=== PATIENT | female | born 1990 | race American Indian/Alaskan Native ===

== ENCOUNTER 2018-08-17 09:01 | Emergency (ER) | payer MEDICAID ==
--- NOTE | 2018-08-17 10:19 | Emergency Department Report ---
Vomiting/Diarrhea - HPI Chief Complaint: Nausea/Vomiting/Diarrhea Stated Complaint: WEAKNESS Duration: Today Severity: moderate Nausea/Vomiting Severity: Mild Diarrhea Severity: None Pain Severity: None Symptoms: Yes Able to Tolerate Fluids, No Watery Diarrhea, No Bloody diarrhea, No Fever, No Recent Unusual Foods, No Recent Untreated Water, No Recent use of Antibiotics, No Family w/ Similar Symptoms, No Contacts w/ Similar Symptoms, No Rash, No Hematuria, No Recent URI Symptoms Other History: This is a 27-year-old -[place] female presents with nausea and dizziness while at work this morning. Patient states she had been feeling weak for 1 week. She made an appointment with senior trainer scheduled for August 22 because she thought symptoms were related to abnormal menses. Last menstrual period was 06/12/2018, A2 abortions. Denies vomiting, diarrhea, abdominal pain, fever, myalgia, or cough. ED Review of Systems ROS: Stated complaint: WEAKNESS Other details as noted in HPI Constitutional: denies: chills, fever Respiratory: denies: cough, shortness of breath, wheezing Cardiovascular: denies: chest pain, palpitations Gastrointestinal: nausea. denies: abdominal pain, vomiting, diarrhea Skin: denies: rash, lesions Neurological: vertigo. denies: headache, weakness, paresthesias Psychiatric: denies: anxiety, depression ED Past Medical Hx - Past Medical History Previous Medical History?: No - Surgical History Additional Surgical History: C/S, tonsillectomy - Social History Smoking Status: Current Every Day Smoker Substance Use Type: None - Medications Home Medications: Home Medications Medication Instructions Recorded Confirmed Last Taken Type 21/Iron Fu/Folic Acid 1 each PO DAILY #30 tablet 08/17/18 Unknown Rx [ Complete Caplet] Vomiting Diarrhea Exam - Exam General: Vital signs noted. No distress. Alert and acting appropriately. HEENT: Yes Moist Mucous Membranes, No Pharyngeal Erythema, No Pharyngeal Exudates, No Rhinorrhea, No Conjuctival Injection, No Frontal Tenderness, No Maxillary Tenderness Neck: No Adenopathy, No Rigidity Lungs: Yes Clear Lung Sounds, Yes Good Air Exchange, No Wheezes, No Stridor, No Cough, No Nasal Flaring, No Retractions, No Use of Accessory Muscles Heart exam: Regular: Yes, Murmur: No, Tachycardia: No Abdomen: Tenderness: No, Peritoneal Signs: No, Distention: No, Hyperactive Bowel sounds: No Skin exam: Rash: No, Edema: No, Normal turgor: Yes Neurologic: Alert and oriented, no deficits. Musculoskeletal: Unremarkable. ED Course Vital Signs 08/17/18 09:06 Temperature 98.1 F Pulse Rate 89 Respiratory 16 Rate Blood Pressure 109/62 O2 Sat by Pulse 100 Oximetry ED Medical Decision Making - Lab Data Result diagrams: 08/17/18 10:27 08/17/18 10:27 Lab Results 08/17/18 08/17/18 08/17/18 Range/Units 10:27 10:27 10:27 WBC 10.2 (4.5-11.0) K/mm3 RBC 4.39 (3.65-5.03) M/mm3 Hgb 13.2 (10.1-14.3) gm/dl Hct 38.4 (30.3-42.9) % MCV 87 (79-97) fl M 30 (28-32) pg MCHC 35 H (30-34) % RDW 13.3 (13.2-15.2) % Plt Count 305 (140-440) K/mm3 Lymph % (Auto) 17.1 (13.4-35.0) % Hand % (Auto) 5.4 (0.0-7.3) % Eos % (Auto) 0.6 (0.0-4.3) % Baso % (Auto) 0.8 (0.0-1.8) % Lymph # 1.7 (1.2-5.4) K/mm3 Hand # 0.5 (0.0-0.8) K/mm3 Eos # 0.1 (0.0-0.4) K/mm3 Baso # 0.1 (0.0-0.1) K/mm3 Seg Neutrophils % 76.1 H (40.0-70.0) % Seg Neutrophils # 7.7 (1.8-7.7) K/mm3 Sodium 136 L (137-145) mmol/L Potassium 3.7 (3.6-5.0) mmol/L Chloride 99.9 (98-107) mmol/L Carbon Dioxide 25 (22-30) mmol/L Anion Gap 15 mmol/L BUN 7 (7-17) mg/dL Creatinine 0.6 L (0.7-1.2) mg/dL Estimated GFR > 60 ml/min BUN/Creatinine Ratio 12 % Glucose 93 (65-100) mg/dL Calcium 9.1 (8.4-10.2) mg/dL HCG, Qual Positive (Negative) - Radiology Data Radiology results: report reviewed ULTRASOUND OB LESS THAN 14 WEEKS FETUS ULTRASOUND OB LESS THAN 14 WEEKS FETUS ADD GESTATION History: Nausea and vomiting during . Technique: Transabdominal ultrasound with color and M mode Doppler interrogation. Comparison: None at this facility. Findings: A twin gestation is present. [place] rump length of baby A measures 49.7 mm which correlates with an 11 week 5 day . Heart rate measures 167 beats per minute. [place]-rump length of baby B measures 49.2 mm which correlates with an 11 week 5 day . heart rate measures 152 beats per minute. The placenta appears to be forming anteriorly. Dizygotic is suspected. Amniotic fluid volume appears within normal limits. No subchorionic hemorrhage is identified. The ovaries are normal size, contour and echotexture. A 1.5 cm corpus luteum cyst is suspected in the left ovary. No pelvic fluid collection. Impression: Viable twin as described. No acute abnormality is detected. - Medical Decision Making Patient was examined by me. Vitals are normal and patient is in no acute distress. Obtained a BMP, CBC, & hCG. Positive serum hCG. Quant is [id number]. OB ultrasound obtained and dictated by radiologist. Viable twin as described. No acute abnormality is detected. Patient informed of results. Start complete. Referral to CREDIT DEPARTMENT MANAGER for continued care. Plan discussed with patient to discharge home and treat outpatient. She agrees with ER plan. Patient discharged home in stable condition. Follow up with CREDIT DEPARTMENT MANAGER for continued care. Critical care attestation.: If time is entered above; I have spent that time in minutes in the direct care of this critically ill patient, excluding procedure time. ED Disposition Clinical Impression: Nausea alone, Dizziness, confirmed by positive blood test Disposition: DC-01 TO HOME OR SELFCARE Is pt being admited?: No Does the pt Need Aspirin: No Condition: Stable Instructions: (ED) Additional Instructions: Take vitamins daily. Follow-up with an CREDIT DEPARTMENT MANAGER for continued care. Return to the emergency room if abdominal pain, low back pain, and vaginal bleeding. Prescriptions: 21/Iron Fu/Folic Acid [ Complete Caplet] 1 each PO DAILY #30 tablet Referrals: HEIDI PRECIADO MD [Primary Care Provider] - 3-5 Days [facility] [Provider Group] - 3-5 Days [facility] [Provider Group] - 3-5 Days [facility] [Provider Group] - 3-5 Days Forms: Work/School Release Form(ED) Time of Disposition: 11:04
[2018-08-17 10:37] LABS: Basophils # (Auto) 0.1 K/mm3 (0.0-0.1); Basophils % (Auto) 0.8 % (0.0-1.8); Eosinophils # (Auto) 0.1 K/mm3 (0.0-0.4); Eosinophils % (Auto) 0.6 % (0.0-4.3); Hematocrit 38.4 % (30.3-42.9); Hemoglobin 13.2 gm/dl (10.1-14.3); Lymphocytes # (Auto) 1.7 K/mm3 (1.2-5.4); Lymphocytes % (Auto) 17.1 % (13.4-35.0); Mean Corpuscular HGB Conc 35 % (30-34); Mean Corpuscular Volume 87 fl (79-97); Monocytes # (Auto) 0.5 K/mm3 (0.0-0.8); Monocytes % (Auto) 5.4 % (0.0-7.3); Platelet Count 305 K/mm3 (140-440); Red Blood Count 4.39 M/mm3 (3.65-5.03); Red Cell Distribution Width 13.3 % (13.2-15.2)
[2018-08-17 10:53] LABS: BUN/Creatinine Ratio 12; Blood Urea Nitrogen 7 mg/dL (7-17); Calcium 9.1 mg/dL (8.4-10.2); Hemolysis Index 1
--- NOTE | 2018-08-17 12:21 | Ultrasound Report ---
ULTRASOUND OB LESS THAN 14 WEEKS FETUS ULTRASOUND OB LESS THAN 14 WEEKS FETUS ADD GESTATION History: Nausea and vomiting during . Technique: Transabdominal ultrasound with color and M mode Doppler interrogation. Comparison: None at this facility. Findings: A twin gestation is present. [place] rump length of baby A measures 49.7 mm which correlates with an 11 week 5 day . Heart rate measures 167 beats per minute. [place]-rump length of baby B measures 49.2 mm which correlates with an 11 week 5 day . heart rate measures 152 beats per minute. The placenta appears to be forming anteriorly. Dizygotic is suspected. Amniotic fluid volume appears within normal limits. No subchorionic hemorrhage is identified. The ovaries are normal size, contour and echotexture. A 1.5 cm corpus luteum cyst is suspected in the left ovary. No pelvic fluid collection. Impression: Viable twin as described. No acute abnormality is detected.
[2018-08-17 13:21] VITALS: BP 101/60
== END 2018-08-17 13:10 | disposition home or self-care (01) ==
LOC: ED 09:01
DX: O26.891 Other specified pregnancy related conditions, first trimester (principal); R11.0 Nausea; R42 Dizziness and giddiness; O99.331 Smoking (tobacco) complicating pregnancy, first trimester; Z90.89 Acquired absence of other organs; Z3A.11 11 weeks gestation of pregnancy
CPT/HCPCS: 36415; 76801; 76802; 80048; 84702; 84703; 85025; 99284